=== PATIENT | male | born 1960 ===

== ENCOUNTER 2017-03-07 17:19 | Inpatient (IN) | payer OTHER ==
[~2017-03-07] VITALS: Ht 180.3 cm; Wt 81.6 kg
--- NOTE | 2017-03-07 17:24 | NUR ---
INSTRUCTED FAMILY NOT TO LET PT HAVE WATER
--- NOTE | 2017-03-07 17:36 | NUR ---
RECEIVED 56 YO MALE C/O NAUSEA AND VOMITING X 2 DAYS WITH ABDOMINAL PAIN. ABOUT 3 HOURS AGO, PT STARTED SCREAMING IN PAIN, STATING PAIN IS MUCH WORSE.
--- NOTE | 2017-03-07 17:36 | NUR ---
PT EXTREMELY DIAPHORETIC IN TRIAGE
--- NOTE | 2017-03-07 18:17 | ED GENERAL ADULT ---
History of Present Illness General Chief Complaint: Abdominal Pain/Flank Pain Stated Complaint: SEVERE ABD PAIN,NAUSEA Source: patient, family Exam Limitations: language barrier Triage Note: RECEIVED 56 YO MALE C/O NAUSEA AND VOMITING X 2 DAYS WITH ABDOMINAL PAIN. ABOUT 3 HOURS AGO, PT STARTED SCREAMING IN PAIN, STATING PAIN IS MUCH WORSE. Triage Nurses Notes Reviewed? yes HPI: 56-year-old otherwise healthy male presenting with nausea and vomiting 2 days and abdominal pain 3 hours. Reports gradual onset of severe sharp abdominal pain that is mostly periumbilical but does radiate throughout the entire abdomen. Denies fevers, diarrhea, dysuria. Last bowel movement was this morning, had a small but normal bowel movement. (MATEO HAMILTON,FERNANDEZ) Vital Signs & Intake/Output Vital Signs & Intake/Output Vital Signs Date Time Temp Pulse Resp B/P B/P Pulse O2 O2 Flow FiO2 Mean Ox Delivery Rate 03/10 1243 98.0 84 20 128/76 92 Room Air 03/10 0800 Room Air 03/10 0600 98.5 72 20 138/84 03/10 0543 98.5 72 20 138/84 92 Nasal 2.0L Cannula 03/10 0000 Nasal 2.0L Cannula 03/09 2209 98.0 88 22 128/82 92 Nasal 2.0L Cannula 03/09 2200 98.0 88 22 128/82 03/09 2105 92 Nasal 2.0L Cannula 03/09 1450 98.6 85 20 140/96 92 Nasal 2.0L Cannula ED Intake and Output 03/10 0000 03/09 1200 Intake Total 900 800 Output Total 1100 620 Balance -200 180 Intake, IV 900 800 Intake, Oral 0 Output, 70 Drainage Output, 150 Gastric Drainage Output, Urine 1100 400 Allergies Coded Allergies: No Known Allergies (03/07/17) Reconcile Medications No Known Home Medications (PANFILO VEGA,MARJORIE Cruz) Past History Travel History Traveled to [place] past 21 day No Medical History Any Pertinent Medical History? none Neurological: NONE EENT: NONE Cardiovascular: NONE Respiratory: NONE Gastrointestinal: NONE Hepatic: NONE Renal: NONE Musculoskeletal: NONE Psychiatric: NONE Endocrine: NONE Blood Disorders: NONE Cancer(s): NONE Surgical History Surgical History: none Psychosocial History What is your primary language Luxembourgish Tobacco Use: Never used Family History Hx Contributory? No (MATEO HAMILTON,FERNANDEZ) Review of Systems Review of Systems Constitutional: Denies: chills, fever, malaise, weakness. Respiratory: Reports: no symptoms. Cardiovascular: Reports: no symptoms. GI: Reports: abdominal pain, nausea, vomiting. Denies: bloating, constipation, diarrhea, distention, bowel incontinence, melena, bloody stool. Genitourinary: Denies: dysuria, hematuria, urgency. Musculoskeletal: Denies: joint pain, muscle pain. Skin: Denies: rash. (FERNANDEZ GALINDO PA-C) Physical Exam Physical Exam General Appearance: well developed/nourished, moderate distress, diaphoretic Head: atraumatic Respiratory: normal breath sounds, lungs clear Cardiovascular: regular rate/rhythm Gastrointestinal: normal bowel sounds, soft, tenderness, normal bowel sounds, abdomen is soft and nondistended, there is diffuse tenderness to palpation cannot be localized, no rebound or guarding, no CVA tenderness. Core Measures ACS in differential dx? No CVA/TIA Diagnosis: No Severe Sepsis Present: No Septic Shock Present: No (FERNANDEZ GALINDO PA-C) Progress Differential Diagnoses I considered the following diagnoses in my evaluation of the patient: [Gastritis versus pancreatitis versus biliary versus appendicitis versus gastroenteritis versus colitis versus bowel obstruction vs perforated viscus.] Initial ED EKG: normal sinus rhythm (rate 86), RBBB (incomplete) (FERNANDEZ GALINDO PA-C) Plan of Care: Orders Procedure Date/time Status CBC WITHOUT DIFFERENTIAL 03/11 06 Active BASIC ELECTROLYTES PLUS BUN&CR 03/11 0600 Active TROPONIN LEVEL 03/09 1441 Complete INCENTIVE SPIROMETRY TRX CHG 03/09 UNK Complete AEROSOL CHG 03/09 UNK Complete OXYGEN 03/09 UNK Complete OXYGEN DAILY CHARGE 03/09 UNK Complete MISSING MEDICATION FORM 03/09 UNK Active EKG 03/09 UNK Active Current Medications Sig/Carlos Start time Last Medication Dose Stop Time Status Admin Potassium Chloride 20 MEQ Q10H 03/10 1030 AC 03/10 (KCl 20MEQ in D5W NS 1304 1000ML) Dextrose/Sodium 1,000 ML Chloride (D5-Normal Saline) Albuterol Sulfate 3 ML BID 03/09 1000 AC 03/10 (Proventil) 1126 Artificial Tears 2 GTT Q4P PRN 03/09 0815 AC (Tears Natural) Ceftriaxone Sodium 2,000 MG 2100 03/08 2100 AC 03/09 (Rocephin) 03/10 Pantoprazole Sodium 40 MG DAILY 03/08 1000 AC 03/10 (Protonix) 0916 Heparin Sodium 5,000 UNIT Q8 03/08 0600 03/10 (Porcine) 1304 Lorazepam 0 Q1P PRN 03/08 0015 03/08 (Ativan) 2201 Acetaminophen 650 MG Q6P PRN 03/07 234 AC (Tylenol) Morphine Sulfate 2 MG Q2P PRN 03/07 2345 03/09 (Morphine) 0200 Morphine Sulfate 4 MG Q2P PRN 03/07 2345 03/10 (Morphine) 0922 Ondansetron HCl 4 MG Q6P PRN 03/07 2345 (Zofran) Zolpidem Tartrate 5 MG AT BEDTIME NEED.. 03/07 2345 03/09 (Ambien) 2222 Laboratory Tests 03/10/17 0648: Anion Gap 7, Estimated GFR > 60, BUN/Creatinine Ratio 16.3, Phosphorus 3.2, Magnesium 2.0, CBC w Diff NO MAN DIFF REQ, RBC 4.15 L, MCV 97.2 H, MCH 33.2 H , RDW 12.6, MPV 9.7, Gran % 70.3, Lymphocytes % 18.2 L, Monocytes % 11.2 H, Eosinophils % 0, Basophils % 0.3, Absolute Granulocytes 4.4, Absolute Lymphocytes 1.1 L, Absolute Monocytes 0.7 H, Absolute Eosinophils 0, Absolute Basophils 0, PUBS MCHC 34.1 03/09/17 1445: Troponin I < 0.01 CT abd pelvis shows perforated puloric/duodenal ulcer with free intra-abdominal air and fluid. Pt seen and evaluated by surgery, will go directly to OR from ED. Pt has WBC elevated to 12.1, covered with rocephin and flagyl. (MATEO HAMILTON,FERNANDEZ) Departure Departure Disposition: STILL A PATIENT Condition: Stable Clinical Impression Primary Impression: Perforated peptic ulcer Departure Forms: Customer Survey General Discharge Information Admission Note Spoke With: FLYNN VEGA,GLENN Lopez Documentation of Exam: Documentation of any treatments & extenuating circumstances including Concerns Regarding Discharge (functional status, medication knowledge or non-compliance, living conditions, etc.) that warrant an admission rather than observation: [ surgical intervention, IVF, IV pain meds, IV abx, HD monitoring] (MATEO HAMILTON,FERNANDEZ) Departure Prescriptions: Current Visit Scripts No Known Home Medications PA/MULTIFOLD OPERATOR Co-Sign Statement Statement: ED Attending supervision documentation- [X] I saw and evaluated the patient. I have also reviewed all the pertinent lab results and diagnostic results. I agree with the findings and the plan of care as documented in the PA's/MULTIFOLD OPERATOR's documentation. [] I have reviewed the ED Record and agree with the PA's/MULTIFOLD OPERATOR's documentation. [] Additions or exceptions (if any) to the PAs/MULTIFOLD OPERATOR's note and plan are summarized below: [] (PANFILO VEGA,MARJORIE Cruz) Critical Care Note Critical Care Note Critical Care Time: non-applicable (MATEO HAMILTON,FERNANDEZ)
[2017-03-07 18:21] LABS: ABSOLUTE BASOPHIL COUNT 0 /CUMM (0.0-0.2); ABSOLUTE EOSINOPHIL COUNT 0 /CUMM (0.0-0.7); ABSOLUTE GRANULOCYTE CT 8.2 /CUMM (1.4-6.5); ABSOLUTE LYMPH COUNT 3.1 /CUMM (1.2-3.4); ABSOLUTE MONOCYTE COUNT 0.8 /CUMM (0.10-0.60); BASOPHIL % 0.2 % (0.0-2.0); EOSINOPHIL % 0 % (0-5); GRANULOCYTE % 67.3 % (42.2-75.2); HEMATOCRIT 46.9 % (42-52); MEAN CORPUSCULAR HGB 33.4 PG (27.0-31.0); MEAN CORPUSCULAR VOLUME 95.6 FL (80.0-94.0); MEAN PLATELET VOLUME 9.2 FL (7.4-10.4); PLATELET COUNT 167 /CUMM (130-400); RBC DISTRIBUTION WIDTH 12.3 % (11.5-14.5); RED BLOOD CELL CT 4.91 /CUMM (4.70-6.10); WHITE BLOOD CELL COUNT 12.1 /CUMM (4.8-10.8)
--- NOTE | 2017-03-07 19:16 | NUR ---
PT'S [id number] REMAINS AT BEDSIDE. EXPLAINED THAT PT IS WAITING FOR CT SCAN.
--- NOTE | 2017-03-07 19:38 | CT SCAN REPORT ---
EXAMINATION: CT ABDOMEN AND PELVIS WITH CONTRAST CLINICAL INFORMATION: bowel obstruction vs appendicitis vs colitis: abd pain and N/V, decreased BM's COMPARISON: None. TECHNIQUE: Multidetector volumetric imaging was performed from the superior aspect of the liver through the pubic symphysis following administration of 95 ml of Optiray 320 Sagittal and coronal reformatted images were obtained on the technologist workstation. DLP: 272 mGy-cm FINDINGS: LUNG BASES: Mild dependent atelectasis PERITONEAL SPACE: Free air and small amount of free fluid is seen. LIVER, GALLBLADDER, AND BILIARY TREE: Coarse calcification is seen incidentally in segment 4 the liver. Otherwise no focal hepatic lesions seen. No biliary ductal dilatation. The gallbladder is unremarkable with no evidence of radiopaque gallstones, gallbladder wall thickening, or obvious pericholecystic inflammatory changes. PANCREAS: Unremarkable. SPLEEN: Unremarkable. ADRENAL GLANDS: Unremarkable. KIDNEYS AND URETERS: Subcentimeter low-attenuation statistically likely cyst is seen in the lower pole of the right kidney. Otherwise the kidneys are normal in size, shape, and attenuation. No hydronephrosis, hydroureter, or calculi seen. No perinephric stranding. BLADDER: Unremarkable. GASTROINTESTINAL TRACT: Main abnormality of note is the distended stomach with focal irregularity and soft tissue stranding adjacent to the region of the pylorus/duodenal bulb. There is wall thickening in this location with surrounding inflammatory changes. On the coronal images there is a suggestion of a tiny perforation in this location seen best on coronal image 38/93. This likely represents the source of the free air. There is scattered colonic diverticulosis but no evidence for diverticulitis. Normal-appearing retrocecal appendix. ABDOMINAL WALL: No significant hernia is appreciated. LYMPHOVASCULAR STRUCTURES: Mild vascular calcification in the aorta. No bulky adenopathy. PELVIC VISCERA: Unremarkable. OSSEOUS STRUCTURES: Unremarkable. IMPRESSION: Distended fluid-filled stomach extending up to an abnormal appearing pylorus/duodenal bulb where there is focal wall thickening and surrounding inflammatory changes. There is a suggestion of a tiny perforating ulcer in this region best appreciated on coronal image 38/93. This is likely the source of the free intraperitoneal air and small free fluid. This critical result was discussed with FERNANDEZ GALINDO at 03/07/2017 7:29 PM and it was ascertained that the content and urgency of the report was understood at the time of direct communication.
--- NOTE | 2017-03-07 20:07 | NUR ---
SURGICAL PA AT BEDSIDE
--- NOTE | 2017-03-07 20:46 | History & Physical Pre-Op ---
CALVIN ARELLANO 03/07/172036: General Information and HPI MD Statement: I have seen and personally examined AURA MORALES and documented this H&P. The patient is a 56 year old M who presented with a patient stated chief complaint of [].abdominal pain Source of Information: family (pt speaks japanese) History of Present Illness: Pt presents with 3 days of nausea, decreased appetite. No history of GI distress or heartburn. No known ulcers. Today he hasn't had any food, had some sips of water eariler. He had sudden pain throughout his abdomen. 10/10 +bm earlier today Presented to [facility] with his nephew who is his ring conductor. At the time of exam his pain is 8/10 after morphine. No nausea currently. No other complaints Allergies/Medications Allergies: Coded Allergies: No Known Allergies (03/07/17) Home Med list No Known Home Medications Past History Medical History Neurological: NONE EENT: NONE Cardiovascular: NONE Respiratory: NONE Gastrointestinal: NONE Hepatic: NONE Renal: NONE Musculoskeletal: NONE Psychiatric: NONE Endocrine: NONE Blood Disorders: NONE Cancer(s): NONE Surgical History Pertinent Surgical History: none Past Family/Social History Psychosocial History Where Do You Live? Other (Visiting [place] with family) Who Do You Live With? Currently visiting his nephew. His family is in [facility] Primary Language: Cameroonian Smoking Status: Heavy Tobacco Smoker ETOH Use: daily Functional Ability ADLs Independent: dressing, eating, toileting, bathing. Review of Systems Review of Systems GI: Reports: see HPI, abdominal pain, nausea. Exam & Diagnostic Data Last 24 Hrs of Vital Signs/I&O Vital Signs Date Time Temp Pulse Resp B/P B/P Pulse O2 O2 Flow FiO2 Mean Ox Delivery Rate 03/07 1835 88 20 141/91 97 Room Air 03/07 1736 95.9 95 20 147/99 95 Room Air Physical Exam: Vital signs are stable General: alert and oriented times three Chest: clear anteriorly bilaterally, RRR, no rales/rhonchi/wheezes Abdomen: nondistended, no bs appreciated, tender throughout all 4 quadrants to mild palpation, no palpable masses Ext: warm, no edema Last 24 Hrs of Labs/Bertrand: Laboratory Tests 03/07/171810: Anion Gap 12, Estimated GFR > 60, BUN/Creatinine Ratio 25.0, Glucose 149 H, Lactic Acid 1.8, Calcium 9.1, Total Bilirubin 1.4 H, AST 56, ALT 81 H, Alkaline Phosphatase 109, Total Protein 8.1, Albumin 4.6, Globulin 3.5, Albumin/ Globulin Ratio 1.3, Amylase 79, Lipase 62, CBC w Diff NO MAN DIFF REQ, RBC 4.91, MCV 95.6 H, MCH 33.4 H, RDW 12.3, MPV 9.2, Gran % 67.3, Lymphocytes % 25.6, Monocytes % 6.9, Eosinophils % 0, Basophils % 0.2, Absolute Granulocytes 8.2 H, Absolute Lymphocytes 3.1, Absolute Monocytes 0.8 H, Absolute Eosinophils 0, Absolute Basophils 0, PUBS MCHC 35.0 Microbiology 03/07 1756 URINE ROUT: Urine Culture - ORD Diagnostic Data Other Results CT abd/pelvis Distended fluid-filled stomach extending up to an abnormal appearing pylorus/duodenal bulb where there is focal wall thickening and surrounding inflammatory changes. There is a suggestion of a tiny perforating ulcer in this region best appreciated on coronal image 38/93. This is likely the source of the free intraperitoneal air and small free fluid. Assessment/Plan Assessment/Plan: 56 yo male presents with free abdominal air, likely a perforated gastric ulcer Discussed with Dr Pruett Plan to go to the OR as soon as possible. Add CXR, EKG, PT/PTT, Type and screen to labs Further recommendation to follow IVF/ABX As Ranked By This Provider Problem List: 1. Intra-abdominal free air of unknown etiology Copies To: FLYNN VEGA,GLENN PRUETT MD,GLENN Lopez 03/07/17 7642: Attending MD Review Statement Attending Statement Attending MD Statement: examined this patient, discuss w/resident/PA/MOLDING MACHINE TENDER, discussed with family, reviewed images Attending Assessment/Plan: 56yo male with no PMH (doesn't seek medical care), presents with three days of nausea and anorexia. Acute onset of pain occured today. Per nephew, he drinks alcohol and smokes cigarrettes "a lot". CT reviewed personally. Findings and presentation c/w perforated duodenal ulcer. Plan for emergent laparotomy and repair.
--- NOTE | 2017-03-07 21:00 | RADIOLOGY REPORT ---
EXAMINATION: PORTABLE CHEST 1 VIEW CLINICAL INFORMATION: pre op perf gastric ulcer. COMPARISON: CT scan from earlier today. TECHNIQUE: Portable frontal view of the chest was obtained. FINDINGS: The lungs are well expanded. No focal infiltrate, effusion, edema, or pneumothorax. Cardiac and mediastinal silhouettes are within normal limits for technique. No acute bony abnormality seen. IMPRESSION: No evidence of acute disease.
[2017-03-07 21:25] LABS: PTT 27 SEC (25-37)
--- NOTE | 2017-03-07 23:15 | Operative Report ---
Operative/Inv Procedure Report Surgery Date: 03/07/17 Name of Procedure: Exploratory laparotomy with Grover patch closure of perforated duodenal ulcer Pre-Operative Diagnosis: Perforated ulcer Post-Operative Diagnosis: Same Peritonitis Estimated Blood Loss: scant Surgeon/Smoking Pipe Coater: Quinn Sams M.D./Trupti MENA Anesthesia: general endotracheal tube Drains: 15 Beninese Vic-Whittington Microbiology: Peritoneal fluid for culture Operative Indication: 56-year-old male presents with acute onset of epigastric abdominal pain. CT scan shows free into peritoneal air. Impression is that of perforated duodenal ulcer. Plan is to proceed with emergency exploration Operative/Procedure Note Note: After informed consent patient brought to the operating room and laid supine. Gen. anesthesia was obtained and his abdomen was prepped and draped. A midline epigastric incision was made sharply. We came through subcutaneous tissues with cautery and incised the fascia with cautery. Peritoneum was entered sharply. The abdomen was explored. There was purulence in the right upper quadrant. A specimen was taken for culture. We then explored the stomach. The proximal duodenum there was a obvious perforation. Tissues in this area were markedly thickened. There is concerned about gastric outlet obstruction. I probe through the ulcer and could easily pass DeBakey forceps both proximally and distally thus excluding any significant obstructive process. We then decided to perform a Grover patch of the ulcer. 3-0 silk sutures were placed, 3 of them and laid open around the ulcer. A piece of omentum was then placed over the ulcer and the sutures tied down to buttress it to the duodenum. Then suction irrigated the perineal cavity normal saline. Nasogastric tube placement was confirmed. A 15 Beninese Vic-Whittington round drain was placed in the right upper quadrant and near the ulcer bed. We then closed the fascia with a running 0 Maxon suture. Subcutaneous tissues tissues were irrigated with saline and the skin was closed with debi. Sterile dressings were applied. Sponge and needle counts are correct.
--- NOTE | 2017-03-07 23:37 | Admission Core Measures ---
Admission Lab Results I reviewed the following labs: Laboratory Tests 03/07 Coagulation APTT Cancelled Urines Urinalysis LIGHT H Urine Color (YEL,AMB,STR) YEL Urine Clarity (CLEAR) CLEAR Urine pH (5.0 - 8.0) 5.5 Ur Specific [place] (1.001 - 1.035) 1.015 Urine Protein (NEG,<30 MG/DL) TRACE H Urine Ketones (NEG) 15 H Urine Nitrite (NEG) NEG Urine Bilirubin (NEG) NEG Urine Urobilinogen (0.1 - 1.0 EU/dl) 0.2 Ur Leukocyte Esterase (NEG) NEG Ur Microscopic SEDIMENT EXAMINED Urine RBC (0 - 5 /HPF) 3-5 Urine WBC (0 - 2 /HPF) RARE Urine Mucus (FEW,NONE) MOD H Urine Hemoglobin (NEG) MOD H Urine Glucose (N MG/DL) NEG 03/07 1811 Chemistry Sodium (137 - 145 mmol/L) 136 L Potassium (3.5 - 5.1 mmol/L) 3.5 Chloride (98 - 107 mmol/L) 95 L Carbon Dioxide (22 - 30 mmol/L) 28 Anion Gap (5 - 16) 12 BUN (9 - 20 mg/dL) 25 H Creatinine (0.7 - 1.2 mg/dL) 1.0 Estimated GFR (>60 ml/min) > 60 BUN/Creatinine Ratio (7 - 25 %) 25.0 Glucose (65 - 99 mg/dL) 149 H Lactic Acid (0.7 - 2.1 mmol/L) 1.8 Calcium (8.4 - 10.2 mg/dL) 9.1 Total Bilirubin (0.2 - 1.3 mg/dL) 1.4 H AST (17 - 59 U/L) 56 ALT (21 - 72 U/L) 81 H Alkaline Phosphatase (< 127 U/L) 109 Total Protein (6.3 - 8.2 g/dL) 8.1 Albumin (3.5 - 5.0 g/dL) 4.6 Globulin (1.9 - 4.2 gm/dL) 3.5 Albumin/Globulin Ratio (1.1 - 2.2 %) 1.3 Amylase (30 - 110 U/L) 79 Lipase (23 - 300 U/L) 62 Coagulation PT (9.4 - 12.5 SEC) 13.0 H INR (0.90 - 1.17) 1.24 H APTT (25 - 37 SEC) 27 Hematology CBC w Diff NO MAN DIFF REQ WBC (4.8 - 10.8 /CUMM) 12.1 H RBC (4.70 - 6.10 /CUMM) 4.91 Hgb (14.0 - 18.0 G/DL) 16.4 Hct (42 - 52 %) 46.9 MCV (80.0 - 94.0 FL) 95.6 H MCH (27.0 - 31.0 PG) 33.4 H RDW (11.5 - 14.5 %) 12.3 Plt Count (130 - 400 /CUMM) 167 MPV (7.4 - 10.4 FL) 9.2 Gran % (42.2 - 75.2 %) 67.3 Lymphocytes % (20.5 - 51.1 %) 25.6 Monocytes % (1.7 - 9.3 %) 6.9 Eosinophils % (0 - 5 %) 0 Basophils % (0.0 - 2.0 %) 0.2 Absolute Granulocytes (1.4 - 6.5 /CUMM) 8.2 H Absolute Lymphocytes (1.2 - 3.4 /CUMM) 3.1 Absolute Monocytes (0.10 - 0.60 /CUMM) 0.8 H Absolute Eosinophils (0.0 - 0.7 /CUMM) 0 Absolute Basophils (0.0 - 0.2 /CUMM) 0 PUBS MCHC (33.0 - 37.0 G/DL) 35.0 Acute Coronary Syndrome Inclusion Criteria ACS Diagnosis No Inpatient Core Measures LDL Reminder: If No, please order W/I first 24hr of stay Congestive Heart Failure Inclusion Criteria CHF Diagnosis No Cerebrovascular accident Inclusion Criteria CVA/TIA Diagnosis No Inpatient Core Measures Bedside Swallow Eval Reminder: If BSE failed, place ST order Antithrombotic Reminder: Order Antithrombotic Medication by end of day 2 Antithrombotic Reminder: Document Reason Antithrombotic Not ordered by end of day 2 AFIB/Flutter Reminder: If Present, add to problem list AFIB/Flutter Reminder: Order Anticoag Medication for pts with AFIB/Flutter Atherosclerosis Reminder: If Present, add to problem list LDL Reminder: If No, please order W/I first 24hr of stay PT Order Reminder: If No, please order Venous thromboembolism Inpatient Core Measures VTE Risk Factors: Age > 40, Surgery No [facility] VTE prophylaxis d/t No contraindications No VTE Pharm Prophylaxis d/t No contraindications Inclusion Criteria - Per Current guidelines, there needs to be overlap - treatment for the first 5 days of Warfarin therapy. - Parenteral Anticoagulation (IV or SC) needs to be - given along with Warfarin therapy. VTE Diagnosis No VTE Type NONE VTE Confirmed by (Test) NONE Problem List As ranked by this Provider includes Assessment & Plan 1. Intra-abdominal free air of unknown etiology HOME MEDS Home Med List No Known Home Medications
[2017-03-08] VITALS (10 sets, daily range): BP systolic 128–158; BP diastolic 70–100
--- NOTE | 2017-03-08 02:15 | NUR ---
PT ARRIVED TO FLOOR AT 0104 VIA STRETCHER. DROWSY/AROUSABLE, ON 2L NC, LUNGS CLEAR, VITALS STABLE. ON IV FLUIDS, BILATERAL WRIST RESTRAINTS IN PLACE FOR PULLING AT LINES, NG TUBE TO LEFT NARE PLACED ON LWS PER ORDERS. YVES DRAIN TO RT ABD DRAINING SEROSANGIOUS FLUID. PT IS NOT PASHTO SPEAKING, FAMILY AT BEDSIDE TO TRANSLATE. AGEE IN PLACE DRAINING CLEAR YELLOW URINE. NO C/O OF PAIN, DISCOMFORT, ON CIWA SCALE SCORING 0 AT THIS TIME. PER FAMILY PT DRINKS BEER "OCCASIONALLY" AND LAST DRINK WAS THREE DAYS AGO PE FAMILY.FALL PRECAUTIONS IN PLACE. WILL CONTINUE TO MONTIOR.
--- NOTE | 2017-03-08 06:07 | PN- General Surgery ---
Subjective Subjective: Pt seen at 2 am in post op check He was extremely combative upon awakening from anesthesia, therefore an extra dose of versed was given in order to transport him to recovery in the ICU. He has therefore been somewhat slow to wake up. He was given a dose of ativan again for the same reason. Pt speaks French only and requires translation via his nephew. No distress at this time. Objective Vital Signs and I&Os Vital Signs Date Time Temp Pulse Resp B/P B/P Pulse O2 O2 Flow FiO2 Mean Ox Delivery Rate 03/08 0307 97.6 86 20 156/100 96 03/08 0200 Nasal 2.0L Cannula 03/08 0104 97.4 74 20 138/98 03/08 0100 97.5 74 20 138/98 94 03/07 2100 98.1 92 11 164/102 95 Room Air 03/07 1835 88 20 141/91 97 Room Air 03/07 1736 95.9 95 20 147/99 95 Room Air Intake & Output 03/08 0800 03/08 0000 03/07 1600 03/07 0800 03/07 0000 03/06 1600 Intake Total 1000 Output Total Balance 1000 Intake, IV 1000 Patient 180 lb 180 lb Weight Weight Estimated Measurement Method Physical Exam: VSS, afebrile, good sat on 2LNC General: sleepy but awakens Chest: clear anteriorly bilaterally, RRR Abd: soft, nondistended, hypoactive bs Ext: warm, no edema Wound: dressed, dry YVES: serosang - about 40cc in bulb Whitney: concentrated urine intraop - clearing now Assessment/Plan Assessment/Plan 56yo male s/p scar patch for perf gastric ulcer npo IVF: pt dehydrated at admission. Received 2 liters fluid pre op, 2 liters intra op, 1 liter bolus post op - now D5NS at 125/hr - will continue to monitor continue rocephin/flagyl hep sc for dvt ppx Core Measures/Miscellaneous Venous Thromboembolism VTE Risk Factors: Age > 40, Smoking, Surgery VTE Contraindications: No Contraindications VTE Diagnosis: No VTE Type: NONE VTE Confirmed by (Test): NONE Beta Mendy Is Beta Mendy a Home Med? No Antibiotics Is Patient on Antibiotics? Yes If Yes: infection
--- NOTE | 2017-03-08 08:04 | NUR ---
NURSING NOTE: PT AWAKE, A/OX3, BULGARIAN SPEAKING; FAMILY AT BEDSIDE. BILAT WRIST RESTRAINTS REMOVED AT THIS TIME, PT MAKING NO ATTEMPTS TO PULL IV/NGT/O2 OR DRAINS AT THIS TIME, VERBALIZES UNDERSTANDING NOT TO REMOVE LINES. CONT TO MONITOR.
[2017-03-08 08:34] LABS: ABSOLUTE BASOPHIL COUNT 0 /CUMM (0.0-0.2); ABSOLUTE EOSINOPHIL COUNT 0 /CUMM (0.0-0.7); ABSOLUTE GRANULOCYTE CT 14.8 /CUMM (1.4-6.5); ABSOLUTE LYMPH COUNT 1.4 /CUMM (1.2-3.4); ABSOLUTE MONOCYTE COUNT 1.1 /CUMM (0.10-0.60); BASOPHIL % 0 % (0.0-2.0); EOSINOPHIL % 0 % (0-5); GRANULOCYTE % 85.4 % (42.2-75.2); MEAN CORPUSCULAR HGB 33.8 PG (27.0-31.0); MEAN CORPUSCULAR HGB CONC 34.7 G/DL (33.0-37.0); MEAN CORPUSCULAR VOLUME 97.4 FL (80.0-94.0); MEAN PLATELET VOLUME 9.8 FL (7.4-10.4); PLATELET COUNT 123 /CUMM (130-400); RED BLOOD CELL CT 3.95 /CUMM (4.70-6.10)
[2017-03-08 08:47] LABS: HEMATOCRIT 38.5 % (42-52)
[2017-03-08 10:29] LABS: WHITE BLOOD CELL COUNT 17.4 /CUMM (4.8-10.8)
--- NOTE | 2017-03-08 10:44 | PN- General Surgery ---
Surgical Brief Attending Note Brief Attending Note: DOING WELL S/P DU ULCER REPAIR. NO MAJOR CHANGES TO CARES TODAY. UP TO CHAIR.
--- NOTE | 2017-03-08 19:50 | NUR ---
AT THIS TIME PT FOUND TO BE RESTING BUT APPEARED TO BE DIAPHORETIC AND TACHYPNEIC, SURGICAL PA AT BEDSIDE TO ASSESS PT, VITALS FOLLOWS, B/P 150/84, PULSE 89, TEMP 98, 95% ON 2L, STAT EKG, STAT LABS AND STAT CXR ORDERED, WILL CONT TO MONITOR
--- NOTE | 2017-03-08 20:19 | Event Note ---
See Addendum Event Note Event Note: I stopped in for evening informal round and pt was noted to be resting, but appeared somewhat diaphoretic. He admitted to abdominal discomfort 02/25, for which he was recently medicated with morphine. He also c/o substernal chest pain , which he now admits has been occurring for most of the day. He has not been out of bed and has difficulty using the incentive spirometer due to pain. Respiratory rate is 28 (my count) and he appears a bit anxious. BP 150/84, HR 89 , Sat 95% on 2L, temp is 98. CIWA score is 8 and he will be dosed 1mg of ativan. -Stat EKG -Stat labs: troponin, electrolytes -CXR now: suspect atelectasis -Continue CIWA protocol. I anticipate that pt has atelectasis and may be experiencing some degree of alcohol withdrawal. Will f/u above test results.
--- NOTE | 2017-03-08 20:38 | RADIOLOGY REPORT ---
EXAMINATION: CHEST 1 VIEW CLINICAL INFORMATION: Hypoxia. Chest pain. COMPARISON: 03/07/2017. TECHNIQUE: An AP view of the chest is provided. FINDINGS: The cardiac silhouette is stable. An enteric tube is in place. The tip overlies the upper abdomen, likely within the stomach. The mediastinal and hilar contours are unremarkable. There is mild bilateral perihilar infiltration. There are neither pleural effusions nor pneumothoraces. There are no consolidations. The osseous structures are unremarkable. IMPRESSION: Mild nonspecific bilateral perihilar infiltration. Enteric tube in place.
[2017-03-09 06:00] VITALS: BP 130/82
--- NOTE | 2017-03-09 08:10 | PN- General Surgery ---
See Addendum Subjective Subjective: Through translation by nephew, patient reporting only incisional abdominal discomfort and irritation to bilateral eyes. No complaints of chest pain, shortness of breath. Denies headache. No acute overnight events reported by nursing staff. Pain medication required q4 hours with good effect. Objective Vital Signs and I&Os Vital Signs Date Time Temp Pulse Resp B/P B/P Pulse O2 O2 Flow FiO2 Mean Ox Delivery Rate 03/09 0600 98.9 79 18 130/82 93 Nasal 2.0L Cannula 03/09 0000 Nasal 2.0L Cannula 03/08 2220 98.6 95 21 156/90 93 Nasal 2.0L Cannula 03/08 2000 98.0 89 28 150/84 95 Nasal 2.0L Cannula 03/08 1749 99.3 90 18 140/82 94 Nasal 2.0L Cannula 03/08 1600 Nasal 2.0L Cannula 03/08 1352 98.0 88 20 128/78 95 Nasal 2.0L Cannula 03/08 1154 98.0 80 20 132/70 95 Nasal 2.0L Cannula 03/08 0816 96 Nasal 2.0L Cannula Intake & Output 03/09 1600 03/09 0800 03/09 0000 03/08 1600 03/08 0800 03/08 0000 Intake Total 495 108 2586 875 1000 Output Total 400 1240 475 480 Balance 400 -290 072 394 7469 Intake, IV 440 131 3993 875 1000 Intake, Oral 0 0 Number 0 0 0 Bowel Movements Output, 40 25 30 Drainage Output, 150 150 200 Gastric Drainage Output, Urine 400 1050 300 250 Patient 180 lb 180 lb Weight Weight Estimated Measurement Method Physical Exam: General: Alert and oriented, no distress, no tremors Skin: Abdomen and extremities skin warm and dry, facial skin appearing diaphoretic, no jaundice Cardiac: RRR, s1s2 Pulmonary: Expiratory wheeze noted left side, right side clear to auscultation : Irby cathter remains in place, urine output 800 cc overnight, urine clear yellow Extremities: Moves all extremities, distal sensation intact, bilateral calves soft and non-tender Abdomen: Soft, non-distended, no bowel sounds auscultated Surgical site: dressing: dry and intact, deven-incisional tenderness noted drain: YVES drain holding suction, 70 cc serosanguinous drainage overnight. NGT: remains on low wall suction, output approximately 150 cc overnight Assessment/Plan Assessment/Plan This is a 56 year old male, POD 2 s/p scar patch for perforated ulcer. PMH significant for etoh and 2 ppd smoking -CIWA protocol to continue, monitor diaphoresis/tremor, continue ativan per protocol, does not appear to need soft restraints at present, will continue to assess need -Pain: Continue current pain regimen -Diet: Continue NPO/NGT, continue IV fluids, consider decrease rate to 75/hr -ABX: Continue rocephin/flagyl today -: Plan to dc irby catheter this am with adequate urine output -DVT PPX: Continue sub q heparin, alps -Activity: OOB encouraged Will d/w Dr. Sams Added artificial tears OU q4 hours prn for eye discomfort Core Measures/Miscellaneous Venous Thromboembolism VTE Risk Factors: Age > 40, Smoking, Surgery VTE Contraindications: No Contraindications VTE Diagnosis: No VTE Type: NONE VTE Confirmed by (Test): NONE Beta Mendy Is Beta Mendy a Home Med? No Antibiotics Is Patient on Antibiotics? Yes If Yes: infection
[2017-03-09 08:54] LABS: ABSOLUTE BASOPHIL COUNT 0 /CUMM (0.0-0.2); ABSOLUTE EOSINOPHIL COUNT 0.1 /CUMM (0.0-0.7); ABSOLUTE GRANULOCYTE CT 6.5 /CUMM (1.4-6.5); ABSOLUTE LYMPH COUNT 1.9 /CUMM (1.2-3.4); BASOPHIL % 0.4 % (0.0-2.0); EOSINOPHIL % 0.7 % (0-5); GRANULOCYTE % 68.4 % (42.2-75.2); HEMATOCRIT 38.8 % (42-52); MEAN CORPUSCULAR HGB 33.3 PG (27.0-31.0); MEAN CORPUSCULAR HGB CONC 34.3 G/DL (33.0-37.0); MEAN PLATELET VOLUME 9.7 FL (7.4-10.4); PLATELET COUNT 111 /CUMM (130-400); RBC DISTRIBUTION WIDTH 12.9 % (11.5-14.5); WHITE BLOOD CELL COUNT 9.5 /CUMM (4.8-10.8)
--- NOTE | 2017-03-09 11:38 | Cons- Medical ---
ARIN MCKEON MD 03/09/17 1137: General Information and HPI Consulting Request Date of Consult: 03/09/17 Requested By: FLYNN VEGA,GLENN Lopez Reason for Consult: ALCOHOL WITHDRAWAL History of Present Illness: This is a 56-year-old male with no significant past medical history who presented to the [facility] with duodenal perforation status post repair day 3. The medical team was consulted on the suspicion the patient going through alcohol withdrawal. Bolivian speaking and does not speak Danish. I spoke to the patient's nephew. Told that the patient drinks 1 pint of vodka, almost every day.. The patient has no history being admitted alcohol rehabilitation in the past and does not have any history of alcohol withdrawal or alcohol-induced seizures. Allergies/Medications Allergies: Coded Allergies: No Known Allergies (03/07/17) Home Med List: No Known Home Medications Review of Systems Review of Systems Constitutional: Reports: see HPI. EENTM: Reports: see HPI. Cardiovascular: Reports: see HPI, edema. Respiratory: Denies: cough, hemoptysis, orthopnea, short of breath. Past History Travel History Traveled to [place] past 21 day No Medical History Blood Transfusion Hx: No Neurological: NONE EENT: NONE Cardiovascular: NONE Respiratory: NONE Gastrointestinal: NONE Hepatic: NONE Renal: NONE Musculoskeletal: NONE Psychiatric: NONE Endocrine: NONE Blood Disorders: NONE Cancer(s): NONE Surgical History Surgical History: 1 Psychosocial History Where Do You Live? Other (Visiting [place] with family) Who Do You Live With? Currently visiting his nephew. His family is in [facility] Primary Language: Bolivian Smoking Status: Heavy Tobacco Smoker ETOH Use: daily Illicit Drug Use: denies illicit drug use Functional Ability ADLs Independent: dressing, eating, toileting, bathing. Exam & Diagnostic Data Last 24 Hrs of Vital Signs/I&O Vital Signs Date Time Temp Pulse Resp B/P B/P Pulse O2 O2 Flow FiO2 Mean Ox Delivery Rate 03/09 1013 Nasal 2.0L Cannula 03/09 0928 95 Nasal 2.0L Cannula 03/09 0600 98.9 79 18 130/82 93 Nasal 2.0L Cannula 03/09 0000 Nasal 2.0L Cannula 03/08 2220 98.6 95 21 156/90 93 Nasal 2.0L Cannula 03/08 2000 98.0 89 28 150/84 95 Nasal 2.0L Cannula 03/08 1749 99.3 90 18 140/82 94 Nasal 2.0L Cannula 03/08 1600 Nasal 2.0L Cannula 03/08 1352 98.0 88 20 128/78 95 Nasal 2.0L Cannula Intake & Output 03/09 1600 03/09 0800 03/09 0000 Intake Total 800 950 Output Total 620 1240 Balance 180 -290 Intake, IV 800 950 Intake, Oral 0 Number 0 Bowel Movements Output, 70 40 Drainage Output, 150 150 Gastric Drainage Output, Urine 400 1050 Physical Exam General Appearance: well developed/nourished, no apparent distress, alert Head: atraumatic, normal appearance Ears, Nose, Throat: normal pharynx, normal ENT inspection, hearing grossly normal Neck: normal inspection, supple Neurologic/Psych: no motor/sensory deficits, awake, alert Last 24 Hrs of Labs/Bertrand: Laboratory Tests 03/09/17 0658: Anion Gap 7, Estimated GFR > 60, BUN/Creatinine Ratio 18.8, Magnesium 2.0, CBC w Diff NO MAN DIFF REQ, RBC 4.00 L, MCV 97.0 H, MCH 33.3 H, RDW 12.9, MPV 9.7, Gran % 68.4, Lymphocytes % 20.4 L, Monocytes % 10.1 H, Eosinophils % 0.7, Basophils % 0.4, Absolute Granulocytes 6.5, Absolute Lymphocytes 1.9, Absolute Monocytes 1.0 H, Absolute Eosinophils 0.1, Absolute Basophils 0, PUBS MCHC 34.3 03/08/17 2009: CBC w Diff Cancelled, WBC Cancelled, RBC Cancelled, Hgb Cancelled, Hct Cancelled , MCV Cancelled, MCH Cancelled, RDW Cancelled, Plt Count Cancelled, MPV Cancelled, PUBS MCHC Cancelled 03/08/171999: Anion Gap 5, Estimated GFR > 60, BUN/Creatinine Ratio 21.4, Magnesium 2.1, Troponin I < 0.01 Assessment/Plan Assessment/Plan This is a 56-year-old male with a past medical history of heavy alcohol use, alcohol abuse, every day smoker who presented to the [facility] with persistent nausea or vomiting and underwent emergent duodenal perforation repair and is status post a 3 Vitals the time of examination showed blood pressure 130/82, saturation of 92% on 2 L, temperature 98.9, respiration rate of 18, pulse rate of 79 Labs looks unremarkable Assessment 1. Questioned regarding acute alcohol detox, 2. Duodenal perforation in this admission status post repair dated 3 Plan and recommendations Recommend adding serum alcohol level to the patient's initial labs(ordered in the system) Considering that the patient every day alcohol use user likely the patient needs to be tapered off Ativan I don believe the patient is acively withdrawing from ETOH and hence will not start on PO atrivan. (I spoke to the nurse and discussed in giving him by mouth Ativan) Agreed with keeping the patient on IV Ativan as per CIWA protocall We will add recommendations along the way Aggressive incentive spirometry DVT prophylaxis at all times Consult Acknowledgment - Thank you for your consult request. ROSA SHIN MD 03/09/17 6321: Assessment/Plan Consult Acknowledgment - Thank you for your consult request. Attending MD Review Statement Attending Statement Attending MD Statement: examined this patient, discuss w/resident/PA/STORE PROMOTER, agreed w/resident/PA/STORE PROMOTER, reviewed EMR data (avail) Attending Assessment/Plan: 56M admitted to surgical service for duodenal perforation s/p repair POD#3. Stable, but diaphoretic and mildly agitated, displaying signs of alcohol withdrawal, drinks 1 pint vodka/day. Today complained of left sided chest pain but did not appear in distress, EKG NSR and unchanged from yesterday, low suspicion for cardiac chest pain. Will continue PRN Ativan, monitor via CIWA for further signs of alcohol withdrawal, obtain BEP and Mg level tomorrow morning. See resident note for full details. Will continue to follow.
[2017-03-09 14:50] VITALS: BP 140/96
--- NOTE | 2017-03-09 15:30 | NUR ---
1430 PATIENT REPORTED CHAST PAIN TO CENTER OF CHEST, ALSO TO NECK AND JAW, 8/10. VSS CHARTED. RAPID RESPONSE WAS CALLED, RESIDENT SAYED AND MICHOACANO HEATH IN THE ROOM. TROPONINS AND EKG DONE ORDERED. MORPHINE GIVEN FOR PAIN ORDERED. PT REPORTED RELIEF OF PAIN WITH MORPHINE.
[2017-03-09 22:00] VITALS: BP 128/82
[2017-03-09 22:09] VITALS: BP 128/82
[2017-03-10 05:43] VITALS: BP 138/84
[2017-03-10 06:00] VITALS: BP 138/84
--- NOTE | 2017-03-10 08:45 | PN- Medicine Consult ---
LINDA VEGA,ARIN 03/10/17 0823: Assessment/Plan Assessment/Plan Assessment: 1. For acute alcohol withdrawal stable for now and no evidence of delirium tremens 2. History of recent duodenal perforation status post repair 3. Alcohol dependence 4. Atypical chest pain 2 episodes not having any chest pain at this point nEGATIVE TROPS AND EKG Plan: Plan Continue with supportive management Basic electrolyte panel and CBC were reviewed. Positives were within normal limits Patient did not require any IV Ativan in the last 24 hours. At this point the patient is not withdrawing from alcohol detox. Duodenal perforation status post repair and surgical management as per the surgery team The patient no active chest pain was most pleuritic in nature and is worsened with inspiration and cough..secondary to post op atelectasis. He is not hypoxic or tachycardic Recommend continuing supportive care Recommend aggressive incentive spirometry Thank you for allowing us to participate and taking care of the patient, the medical team would sign off please call us back for any further questions Problem List: 1. Duodenal ulcer perforation Subjective Subjective: Patient seen at bedside with the cousin who translated the patient needs and requirements.The patient is doing well. The patient does not have any chest pain. Denied any shakes or chills. Objective Last 24 Hrs of Vital Signs/I&O Vital Signs Date Time Temp Pulse Resp B/P B/P Pulse O2 O2 Flow FiO2 Mean Ox Delivery Rate 03/10 0800 Room Air 03/10 0600 98.5 72 20 138/84 03/10 0543 98.5 72 20 138/84 92 Nasal 2.0L Cannula 03/10 0000 Nasal 2.0L Cannula 03/09 2209 98.0 88 22 128/82 92 Nasal 2.0L Cannula 03/09 2200 98.0 88 22 128/82 03/09 2105 92 Nasal 2.0L Cannula 03/09 1450 98.6 85 20 140/96 92 Nasal 2.0L Cannula 03/09 1013 Nasal 2.0L Cannula 03/09 0928 95 Nasal 2.0L Cannula Intake & Output 03/10 1600 03/10 0800 03/10 0000 Intake Total 800 300 Output Total 1130 450 Balance -330 -150 Intake, IV 800 300 Intake, Oral 0 0 Output, 30 Drainage Output, 150 Gastric Drainage Output, Urine 950 450 Physical Exam General Appearance: well developed/nourished, no apparent distress, alert Head: atraumatic, normal appearance Current Medications: Current Medications Sig/Carlos Start time Last Medication Dose Route Stop Time Status Admin Acetaminophen 650 MG Q6P PRN 03/07 2345 PO Albuterol Sulfate 3 ML BID 03/09 1000 AC 03/09 INH 2105 Artificial Tears 2 GTT Q4P PRN 03/09 0815 AC OU Ceftriaxone Sodium 2,000 MG 2100 03/08 2100 AC 03/09 IV 03/10 205 212 Heparin Sodium 5,000 UNIT Q8 03/08 0600 03/10 (Porcine) SC 0524 Lorazepam 1.5 MG Q8 03/09 1450 MS PO Lorazepam 0 Q1P PRN 03/08 0015 AC 03/08 IV 2201 Metronidazole 500 MG Q8H 03/08 0500 DC 03/09 N/A 1 UNIT IV 03/10 0458 212 Morphine Sulfate 2 MG Q2P PRN 03/07 2345 AC 03/09 IV 0200 Morphine Sulfate 4 MG Q2P PRN 03/07 2345 AC 03/10 IV 0524 Ondansetron HCl 4 MG Q6P PRN 03/07 2345 IV Pantoprazole Sodium 40 MG DAILY 03/08 1000 AC 03/09 IV 0858 Patient Medication 1 ED .STK-MED ONE 03/09 1245 DC Teaching ED 03/09 1246 Potassium Chloride 20 MEQ Q10H 03/08 2115 03/10 Dextrose/Sodium 1,000 ML IV 0525 Chloride Zolpidem Tartrate 5 MG AT BEDTIME NEED.. 03/07 2345 AC 03/09 PO 2222 Results Last 24 Hrs Lab/Bertrand Results: Laboratory Tests 03/10/17 0648: Anion Gap 7, Estimated GFR > 60, BUN/Creatinine Ratio 16.3, Phosphorus 3.2, Magnesium 2.0, CBC w Diff Pending, WBC Pending, RBC Pending, Hgb Pending, Hct Pending, MCV Pending, MCH Pending, RDW Pending, Plt Count Pending, MPV Pending, PUBS MCHC Pending 03/09/17 1445: Troponin I < 0.01 ROSA SHIN MD 03/10/172049: Attending MD Review Statement Attending Sign Off Attending Cosign Statement: I have: examined this patient, reviewed [facility] EMR data, discussd w/resident/PA/ AIRPLANE COVER MAKER, agreed w/resident/PA/AIRPLANE COVER MAKER.
[2017-03-10 08:54] LABS: ABSOLUTE BASOPHIL COUNT 0 /CUMM (0.0-0.2); ABSOLUTE EOSINOPHIL COUNT 0 /CUMM (0.0-0.7); ABSOLUTE GRANULOCYTE CT 4.4 /CUMM (1.4-6.5); ABSOLUTE LYMPH COUNT 1.1 /CUMM (1.2-3.4); ABSOLUTE MONOCYTE COUNT 0.7 /CUMM (0.10-0.60); BASOPHIL % 0.3 % (0.0-2.0); EOSINOPHIL % 0 % (0-5); GRANULOCYTE % 70.3 % (42.2-75.2); HEMATOCRIT 40.4 % (42-52); MEAN CORPUSCULAR HGB 33.2 PG (27.0-31.0); MEAN CORPUSCULAR HGB CONC 34.1 G/DL (33.0-37.0); MEAN CORPUSCULAR VOLUME 97.2 FL (80.0-94.0); MEAN PLATELET VOLUME 9.7 FL (7.4-10.4); PLATELET COUNT 130 /CUMM (130-400); RBC DISTRIBUTION WIDTH 12.6 % (11.5-14.5); RED BLOOD CELL CT 4.15 /CUMM (4.70-6.10); WHITE BLOOD CELL COUNT 6.2 /CUMM (4.8-10.8)
--- NOTE | 2017-03-10 09:10 | NUR ---
PATIENT ASSISTED TO EDGE OF BED AND TO STAND AT BEDSIDE; ENCOURAGED PATIENT TO SIT IN CHAIR BUT PATIENT REFUSED; PER PATIENT "IT IS MORE COMFORTABLE IN BED"; PATIENT AWARE OF BENEFITS OF SITTING IN CHAIR; WILL CONTINUE TO ENCOURAGE PATIENT;
--- NOTE | 2017-03-10 09:39 | PN- General Surgery ---
See Addendum Subjective Subjective: Pain controlled with iv morphine. Remains npo with ng tube. No flatus or bm. Out of bed with assitance. Objective Vital Signs and I&Os Vital Signs Date Time Temp Pulse Resp B/P B/P Pulse O2 O2 Flow FiO2 Mean Ox Delivery Rate 03/10 0800 Room Air 03/10 0600 98.5 72 20 138/84 03/10 0543 98.5 72 20 138/84 92 Nasal 2.0L Cannula 03/10 0000 Nasal 2.0L Cannula 03/09 2209 98.0 88 22 128/82 92 Nasal 2.0L Cannula 03/09 2200 98.0 88 22 128/82 03/09 2105 92 Nasal 2.0L Cannula 03/09 1450 98.6 85 20 140/96 92 Nasal 2.0L Cannula 03/09 1013 Nasal 2.0L Cannula Intake & Output 03/10 1600 03/10 0800 03/10 0000 03/09 1600 03/09 0800 03/09 0000 Intake Total 800 300 600 800 950 Output Total 1130 450 853 702 8722 Balance -330 -150 -50 180 -290 Intake, IV 800 300 600 800 950 Intake, Oral 0 0 0 0 Number 0 Bowel Movements Output, 30 70 40 Drainage Output, 150 150 150 Gastric Drainage Output, Urine 950 450 498 066 4053 Physical Exam: General - alert. appears comfortable. no acute distress. Lungs - clear bilaterally. Cardiac - s1s2. reg. Abdomen - soft. midline dressing c/d/i. ng tube in place with bilious drainage. YVES drain with serosang output. Extremities - warm bilaterally. no c/c/e. calves soft and nontender b/l. Current Medications: Current Medications Sig/Carlos Start time Last Medication Dose Route Stop Time Status Admin Acetaminophen 650 MG Q6P PRN 03/07 2345 AC PO Albuterol Sulfate 3 ML BID 03/09 1000 AC 03/09 INH 2105 Artificial Tears 2 GTT Q4P PRN 03/09 0815 AC OU Ceftriaxone Sodium 2,000 MG 2100 03/08 2100 AC 03/09 IV 03/10 Heparin Sodium 5,000 UNIT Q8 03/08 0600 AC 03/10 (Porcine) SC 0524 Lorazepam 1.5 MG Q8 03/09 1450 DC PO Lorazepam 0 Q1P PRN 03/08 0015 AC 03/08 IV 2201 Metronidazole 500 MG Q8H 03/08 0500 DC 03/09 N/A 1 UNIT IV 03/10 0458 2122 Morphine Sulfate 2 MG Q2P PRN 03/07 234 03/09 IV 0200 Morphine Sulfate 4 MG Q2P PRN 03/07 2345 03/10 IV 0922 Ondansetron HCl 4 MG Q6P PRN 03/07 2345 IV Pantoprazole Sodium 40 MG DAILY 03/08 1000 03/10 IV 0916 Patient Medication 1 ED .STK-MED ONE 03/09 1245 MT Teaching ED 03/09 1246 Potassium Chloride 20 MEQ Q10H 03/08 2115 03/10 Dextrose/Sodium 1,000 ML IV 05 Chloride Zolpidem Tartrate 5 MG AT BEDTIME NEED.. 03/07 2345 03/09 PO 2222 Results Last 48 Hours of Labs: Laboratory Tests 03/10 03/09 0648 1445 Chemistry Sodium (137 - 145 mmol/L) 135 L Potassium (3.5 - 5.1 mmol/L) 4.2 Chloride (98 - 107 mmol/L) 101 Carbon Dioxide (22 - 30 mmol/L) 26 Anion Gap (5 - 16) 7 BUN (9 - 20 mg/dL) 13 Creatinine (0.7 - 1.2 mg/dL) 0.8 Estimated GFR (>60 ml/min) > 60 BUN/Creatinine Ratio (7 - 25 %) 16.3 Phosphorus (2.5 - 4.5 mg/dL) 3.2 Magnesium (1.6 - 2.3 mg/dL) 2.0 Troponin I (<0.11 ng/ml) < 0.01 Hematology CBC w Diff NO MAN DIFF REQ WBC (4.8 - 10.8 /CUMM) 6.2 RBC (4.70 - 6.10 /CUMM) 4.15 L Hgb (14.0 - 18.0 G/DL) 13.8 L Hct (42 - 52 %) 40.4 L MCV (80.0 - 94.0 FL) 97.2 H MCH (27.0 - 31.0 PG) 33.2 H RDW (11.5 - 14.5 %) 12.6 Plt Count (130 - 400 /CUMM) 130 MPV (7.4 - 10.4 FL) 9.7 Gran % (42.2 - 75.2 %) 70.3 Lymphocytes % (20.5 - 51.1 %) 18.2 L Monocytes % (1.7 - 9.3 %) 11.2 H Eosinophils % (0 - 5 %) 0 Basophils % (0.0 - 2.0 %) 0.3 Absolute Granulocytes (1.4 - 6.5 /CUMM) 4.4 Absolute Lymphocytes (1.2 - 3.4 /CUMM) 1.1 L Absolute Monocytes (0.10 - 0.60 /CUMM) 0.7 H Absolute Eosinophils (0.0 - 0.7 /CUMM) 0 Absolute Basophils (0.0 - 0.2 /CUMM) 0 PUBS MCHC (33.0 - 37.0 G/DL) 34.1 03/09 Chemistry Sodium (137 - 145 mmol/L) 133 L 133 L Potassium (3.5 - 5.1 mmol/L) 4.0 4.0 Chloride (98 - 107 mmol/L) 100 101 Carbon Dioxide (22 - 30 mmol/L) 26 26 Anion Gap (5 - 16) 7 5 BUN (9 - 20 mg/dL) 15 15 Creatinine (0.7 - 1.2 mg/dL) 0.8 0.7 Estimated GFR (>60 ml/min) > 60 > 60 BUN/Creatinine Ratio (7 - 25 %) 18.8 21.4 Magnesium (1.6 - 2.3 mg/dL) 2.0 2.1 Troponin I (<0.11 ng/ml) < 0.01 Hematology CBC w Diff NO MAN DIFF REQ Cancelled WBC (4.8 - 10.8 /CUMM) 9.5 Cancelled RBC (4.70 - 6.10 /CUMM) 4.00 L Cancelled Hgb (14.0 - 18.0 G/DL) 13.3 L Cancelled Hct (42 - 52 %) 38.8 L Cancelled MCV (80.0 - 94.0 FL) 97.0 H Cancelled MCH (27.0 - 31.0 PG) 33.3 H Cancelled RDW (11.5 - 14.5 %) 12.9 Cancelled Plt Count (130 - 400 /CUMM) 111 L Cancelled MPV (7.4 - 10.4 FL) 9.7 Cancelled Gran % (42.2 - 75.2 %) 68.4 Lymphocytes % (20.5 - 51.1 %) 20.4 L Monocytes % (1.7 - 9.3 %) 10.1 H Eosinophils % (0 - 5 %) 0.7 Basophils % (0.0 - 2.0 %) 0.4 Absolute Granulocytes (1.4 - 6.5 /CUMM) 6.5 Absolute Lymphocytes (1.2 - 3.4 /CUMM) 1.9 Absolute Monocytes (0.10 - 0.60 /CUMM) 1.0 H Absolute Eosinophils (0.0 - 0.7 /CUMM) 0.1 Absolute Basophils (0.0 - 0.2 /CUMM) 0 PUBS MCHC (33.0 - 37.0 G/DL) 34.3 Cancelled Assessment/Plan Assessment/Plan This is a 56 year old male with etoh hx is POD#3 s/p scar patch for perforated ulcer continue npo / ivf / ngt oob/ambulation continue iv rocephin / flagyl protonix - gi ppx hep sc - dvt ppx f/u labs ciwa protocol active will d/w Core Measures/Miscellaneous Venous Thromboembolism VTE Risk Factors: Age > 40, Smoking, Surgery VTE Contraindications: No Contraindications VTE Diagnosis: No VTE Type: NONE VTE Confirmed by (Test): NONE Beta Mendy Is Beta Mendy a Home Med? No Antibiotics Is Patient on Antibiotics? Yes If Yes: infection
[2017-03-10 12:43] VITALS: BP 128/76
--- NOTE | 2017-03-10 13:33 | NUR ---
PATIENT AMBULATED IN HALLWAY APPROXIMATELY 50 FEET WITH AX1; PATIENT REFUSED TO SIT IN THE CHAIR AT THIS TIME; ASSISTED BACK TO BED; NGT IN PLACE TO LWS; YVES DRAIN TO R ABDOMEN;
[2017-03-10 23:09] VITALS: BP 139/96
--- NOTE | 2017-03-11 07:09 | PN- General Surgery ---
See Addendum Subjective Subjective: The patient was seen this morning postoperatively day #4. He reports that his pain is under adequate control has no complaints at the current time. He denies any nausea and has still yet to pass gas or move his bowels. Objective Vital Signs and I&Os Vital Signs Date Time Temp Pulse Resp B/P B/P Pulse O2 O2 Flow FiO2 Mean Ox Delivery Rate 03/109 97.9 80 18 139/96 92 Room Air 03/10 1924 92 Room Air 03/10 1243 98.0 84 20 128/76 92 Room Air 03/10 0800 Room Air Intake & Output 03/11 0803/11 0000 03/10 1600 03/10 0800 03/10 0000 03/09 1600 Intake Total 800 400 850 800 300 600 Output Total 720 60 920 1130 450 650 Balance 80 340 -70 -330 -150 -50 Intake, IV 800 400 800 800 300 600 Intake, Oral 0 0 0 0 0 0 Intake, Other 50 Number 0 0 0 Bowel Movements Output, 20 10 20 30 Drainage Output, 200 50 200 150 Gastric Drainage Output, Urine 500 700 950 450 650 Physical Exam: Gen.: Alert and in no obvious distress Skin: Warm and dry Abdomen: Soft, mildly distended, appropriate incisional tenderness, bowel sounds sluggish. Surgical incisions with clips in place and no signs of infection. YVES Extremities: Bilateral lower extremities are warm without calf tenderness or significant edema. Assessment/Plan Assessment/Plan Assessment: 56-year-old male status post [place] patch repair of perforated ulcer postoperative day #4. The patient is slowly progressing however bowel function has yet to return. Plan: Continue nothing by mouth and NG tube decompression until bowel function has returned IV hydration IV antibiotics Out of bed and ambulate GI and DVT prophylaxis Follow-up morning labs Follow-up medical consultation recommendations Monitor for alcohol withdrawal Core Measures/Miscellaneous Venous Thromboembolism VTE Risk Factors: Age > 40, Smoking, Surgery VTE Contraindications: No Contraindications VTE Diagnosis: No VTE Type: NONE VTE Confirmed by (Test): NONE Beta Mendy Is Beta Mendy a Home Med? No Antibiotics Is Patient on Antibiotics? Yes If Yes: infection
[2017-03-11 07:42] VITALS: BP 117/70
--- NOTE | 2017-03-11 07:57 | NUR ---
0700 SURGICAL TRINA Anderson NOTIFIED OF PT C/O NASAL STUFFINESS. AWAIT NEW ORDERS.
[2017-03-11 14:14] VITALS: BP 118/82
[2017-03-11 22:49] VITALS: BP 142/80
[2017-03-12 07:41] VITALS: BP 126/81
[2017-03-12 08:00] VITALS: BP 126/80
[2017-03-12 08:11] LABS: ABSOLUTE BASOPHIL COUNT 0 /CUMM (0.0-0.2); ABSOLUTE EOSINOPHIL COUNT 0.1 /CUMM (0.0-0.7); ABSOLUTE GRANULOCYTE CT 1.8 /CUMM (1.4-6.5); ABSOLUTE MONOCYTE COUNT 0.6 /CUMM (0.10-0.60); BASOPHIL % 0.5 % (0.0-2.0); EOSINOPHIL % 4.1 % (0-5); GRANULOCYTE % 49.8 % (42.2-75.2); HEMATOCRIT 42.1 % (42-52); MEAN CORPUSCULAR HGB CONC 34.4 G/DL (33.0-37.0); MEAN CORPUSCULAR VOLUME 95.9 FL (80.0-94.0); PLATELET COUNT 161 /CUMM (130-400); RBC DISTRIBUTION WIDTH 12.6 % (11.5-14.5); RED BLOOD CELL CT 4.39 /CUMM (4.70-6.10); WHITE BLOOD CELL COUNT 3.6 /CUMM (4.8-10.8)
--- NOTE | 2017-03-12 09:02 | PN- General Surgery ---
See Addendum Subjective Subjective: Pt. interviewed via painter mirror He is comfortable, denies pain Denies nausea or emesis. Has been passing good amounts of flatus. No BM Objective Vital Signs and I&Os Vital Signs Date Time Temp Pulse Resp B/P B/P Pulse O2 O2 Flow FiO2 Mean Ox Delivery Rate 03/12 08 98.3 70 20 126/80 03/12 0741 98.3 71 20 126/81 93 Room Air 03/11 2249 98.2 88 20 142/80 92 Room Air 03/11 1842 92 Nasal 2.0L Cannula 03/11 1414 98.7 74 18 118/82 90 Room Air 03/11 1147 95 Room Air Intake & Output 03/12 1600 03/12 0800 03/12 0000 03/11 1600 03/11 0000 Intake Total 700 800 400 Output Total 1240 51 500 720 190 Balance -1240 -51 200 80 210 Intake, IV 700 800 400 Intake, Oral 0 0 Number 0 0 Bowel Movements Output, 40 20 20 Drainage Output, 750 50 200 200 170 Gastric Drainage Output, Urine 450 1 300 500 Patient 180 lb Weight Alert, not agitated, appropriate lungs clear Cor Regular Abdomen is soft, with minimal distention, appropriately tender along incision.No tympany Incision with debi C/D/I, no erythrema RIO output in small amounts serosanginous. NGT output bilious , recorded as 750 cc over night however unclear if it was recorded adequately Extr. without edema. Assessment/Plan Assessment/Plan s/p Grover patch for perforated gastric ulcer POD#5 Stable hemodynamics, no signs of alcohol withdrawal Abdominal exam as expected, essentially benign. He has evidence of bowel fxn/ passing flatus.Awaiting BM. Wound without infection. [place] output as expected.Will likely keep till on solid diet. Discussed with Dr Sams; plan is to d/c NGT and initiate clear liquids today. Will discuss abx treatement , Rocephin/Flagyl today. Core Measures/Miscellaneous Venous Thromboembolism VTE Risk Factors: Age > 40, Smoking, Surgery VTE Contraindications: No Contraindications VTE Diagnosis: No VTE Type: NONE VTE Confirmed by (Test): NONE Beta Mendy Is Beta Mendy a Home Med? No Antibiotics Is Patient on Antibiotics? Yes If Yes: infection
--- NOTE | 2017-03-12 13:52 | NUR ---
LATE ENTRY: NGT REMOVED FROM L [facility], WELL TOLERATED. PT TOLERATING CLEAR LIQUIDS, NO COMPLAINTS OF PAIN OR NAUSEA. WILL CONTINUE TO MONITOR.
[2017-03-12 14:20] VITALS: BP 130/92
[2017-03-12 21:35] VITALS: BP 144/90
[2017-03-13] VITALS: BP 142/82
[2017-03-13 06:45] VITALS: BP 120/70
[2017-03-13 07:56] LABS: ABSOLUTE BASOPHIL COUNT 0 /CUMM (0.0-0.2); ABSOLUTE EOSINOPHIL COUNT 0.1 /CUMM (0.0-0.7); ABSOLUTE GRANULOCYTE CT 2.3 /CUMM (1.4-6.5); ABSOLUTE LYMPH COUNT 1.1 /CUMM (1.2-3.4); ABSOLUTE MONOCYTE COUNT 0.8 /CUMM (0.10-0.60); BASOPHIL % 0.4 % (0.0-2.0); EOSINOPHIL % 2.6 % (0-5); GRANULOCYTE % 52.2 % (42.2-75.2); HEMATOCRIT 40.4 % (42-52); MEAN CORPUSCULAR HGB CONC 34.3 G/DL (33.0-37.0); MEAN CORPUSCULAR VOLUME 96.3 FL (80.0-94.0); MEAN PLATELET VOLUME 9.1 FL (7.4-10.4); PLATELET COUNT 173 /CUMM (130-400); RBC DISTRIBUTION WIDTH 12.6 % (11.5-14.5); RED BLOOD CELL CT 4.19 /CUMM (4.70-6.10); WHITE BLOOD CELL COUNT 4.4 /CUMM (4.8-10.8)
--- NOTE | 2017-03-13 08:35 | PN- General Surgery ---
See Addendum Subjective Subjective: interviewed and examined with son translating no major issues overnight denies cp, sob, no n+v with clear diet Objective Vital Signs and I&Os Vital Signs Date Time Temp Pulse Resp B/P B/P Pulse O2 O2 Flow FiO2 Mean Ox Delivery Rate 03/13 0645 98.4 68 18 120/70 96 Room Air 03/13 0000 98.1 80 20 142/82 03/12 2135 98.3 78 19 144/90 94 03/12 1955 95 Room Air 03/12 1420 98.6 72 20 130/92 95 Room Air 03/12 1103 95 Room Air Intake & Output 03/13 1600 03/13 0800 03/13 0000 03/12 1600 03/12 0800 03/12 0000 Intake Total 1050 1600 1200 Output Total 355 462 532 0869 51 Balance 695 1070 1020 -1240 -51 Intake, IV 810 800 800 Intake, Oral 240 800 400 Number 0 Bowel Movements Output, 55 30 30 40 Drainage Output, 150 750 50 Gastric Drainage Output, Urine 300 500 450 1 Physical Exam: cv: rrr lungs: clear abd: soft mild ruq tenderness to palp, no guarding incision c/d/i murtaza: serosanguinous drainage, not bilious ext: warm, no hal tenderness Assessment/Plan Assessment/Plan surgical stable plan advance to full liquid this am if tolerates will d/c home this afternoon Core Measures/Miscellaneous Venous Thromboembolism VTE Risk Factors: Age > 40, Smoking, Surgery VTE Contraindications: No Contraindications VTE Diagnosis: No VTE Type: NONE VTE Confirmed by (Test): NONE Beta Mendy Is Beta Mendy a Home Med? No Antibiotics Is Patient on Antibiotics? Yes If Yes: infection
[2017-03-13] MEDS ORDERED: PROTONIX40 M3 PO (11:09)
[2017-03-13] MEDS ORDERED: OXYCODONE HCL5 M1 PO (11:09)
--- NOTE | 2017-03-13 11:18 | Patient Discharge Instructions ---
Discharge Instructions General Discharge Information You were seen/treated for: perforated gastric ulcer You had these procedures: scar patch repair of perforated gastric ulcer Watch for these problems: temp>101.5, increased wound drainage/redness, increased pain Call Surgeon to remove: [place], in two weeks No bath, but you may shower: Yes Other wound care: keep wound clean and dry Diet Recommended Diet: Soft Diet Activity Activity Limited to: Weight bear as tolerated Other activity limits: no strenuous activity Acute Coronary Syndrome Inclusion Criteria At DC or during hospital stay patient has or had the following: ACS DIAGNOSIS No Discharge Core Measures Meds if any: Prescribed or Continued at Discharge Meds if any: NOT Prescribed or Continued at Discharge Congestive Heart Failure Inclusion Criteria At DC or during hospital stay patient has or had the following: CHF DIAGNOSIS No Discharge Core Measures Meds if any: Prescribed or Continued at Discharge Meds if any: NOT Prescribed or Continued at Discharge Cerebrovascular accident Inclusion Criteria At DC or during hospital stay patient has or had the following: CVA/TIA Diagnosis No Discharge Core Measures Meds if any: Prescribed or Continued at Discharge Meds if any: NOT Prescribed or Continued at Discharge Venous thromboembolism Inclusion Criteria VTE Diagnosis No VTE Type NONE VTE Confirmed by (Test) NONE Discharge Core Measures - Per Current guidelines, there needs to be overlap - treatment for the first 5 days of Warfarin therapy. - If discharged on Warfarin prior to 5 days of - overlap therapy, the patient will need to be - assessed for post discharge needs including - *Post discharge parental anticoagulation - *Warfarin and/or parental anticoagulation education - *Follow up date to check INR post discharge At least 5 days overlap therapy as Inpatient No Meds if any: Prescribed or Continued at Discharge Note: Overlap Therapy is Warfarin and Anticoagulant Meds if any: NOT Prescribed or Continued at Discharge
--- NOTE | 2017-03-13 12:15 | Surgical Discharge Summary ---
Visit Information Visit Dates Admission Date: 03/07/17 Discharge Date: 03/13/17 History of Present Illness Chief Complaint: abdominal pain Medical History Blood Transfusion Hx: No Neurological: NONE EENT: NONE Cardiovascular: NONE Respiratory: NONE Gastrointestinal: NONE Hepatic: NONE Renal: NONE Musculoskeletal: NONE Psychiatric: NONE Endocrine: NONE Blood Disorders: NONE Cancer(s): NONE History of MRSA: No History of VRE: No History of CDIFF: No Isolation History: Standard Surgical History Pertinent Surgical History: Repair perforated DU Psychosocial History Where Do You Live? Other (Visiting [place] with family) Who Do You Live With? Family What is Your Primary Language? Brazilian ETOH Use: daily Review of Systems: not assessed at d/c Hospital Course Course Attending Physician: FLYNN VEGA,GLENN Lopez Primary Care Physician: PATIENT HAS NO PRIMARY CARE DR Hospital Course: Patient went emergently to the operating room for repair of perforated duodenal ulcer. Perioperatively he recovered as expected. His leukocytosis resolved and bowel function returned. Subsequently started on a diet. The [place] drain was removed after he was tolerating clears and there is no evidence of bilious output. He'll be discharged home with follow-up in the office Allergies: Coded Allergies: No Known Allergies (03/07/17) Significant Procedures: Explored her laparotomy with Grover patch Disposition Summary Disposition Principal Diagnosis: Duodenal ulcer with perforation Additional Diagnosis: None Discharge Disposition: home or self care Discharge Instructions General Discharge Information Code Status: Full Code Patient's Diet: Soft Patient's Activity: No lifting Follow-Up Instructions/Appts: 2 weeks for staple removal Medications at Discharge Discharge Medications: Start taking the following new medications: Oxycodone HCl (Oxycodone HCl) 5 MG TABLET 1 Tablet ORAL EVERY 4-6 HOURS NEEDED Qty = 20 No Refills Pantoprazole Sodium (Protonix) 40 MG TABLET.DR 1 Tablet ORAL DAILY Qty = 30 No Refills Comments: Last Taken:03/13/17 Time:9AM GIVEN IV
== END 2017-03-13 14:42 | DRG 330 ==
LOC: ERH 17:19 → 2NB 23:50 → CRI 23:50 → 2NB 03-08 01:04 → ENPENDDIS 03-13 11:20 → 2NB 03-13 14:42
PROVIDERS: Nurse Practitioner; Physician Assistant; Physician Assistant Surgical; ADMIT Surgery
PROC: 0DU907Z Supplement Duodenum with Autologous Tissue Substitute, Open Approach (ICD-10-PCS; principal; 2017-03-07)
DX: K26.5 Chronic or unspecified duodenal ulcer with perforation (principal); F10.239 Alcohol dependence with withdrawal, unspecified; F17.210 Nicotine dependence, cigarettes, uncomplicated; E86.0 Dehydration
CPT/HCPCS: 2NBP; 87075; CCU; 36415; 74177; 81001; 82436; 87086; 93005; 93010; 96374; 96375; C9399; G0480; J0696; J1170; J1644; J2060; J2250; J2405; J3010; J7042; S5012